=== PATIENT | female | born 1995 | race Caucasian/White ===

== ENCOUNTER → 2016-10-13 | Outpatient (CLI) | payer OTHER ==
[~2016-10-13] MED LIST: BCPILLS PO; LORA5TAB3 PO
== END | disposition home or self-care (01) ==
LOC: C.LABSPEC 17:33
PROVIDERS: ATTEND Pediatrics
DX: J02.9 Acute pharyngitis, unspecified (principal)

== ENCOUNTER → 2016-10-22 | Outpatient (CLI) | payer OTHER, BC ==
--- NOTE | 2016-10-22 16:32 | DIAGNOSTIC IMAGING REPORT ---
RENAL ULTRASOUND CLINICAL HISTORY: Hypertension. COMPARISON STUDY: CT of the abdomen and pelvis August 04, 2011. TECHNIQUE: Sonography of the kidneys and the urinary bladder was performed. FINDINGS: The right kidney measures 11.8 x 4.7 x 5.7 cm and the left measures 11.8 x 5.1 x 5.9 cm. There is no hydronephrosis. No calculi or masses are identified by sonography. Renal echogenicity, size and cortical thickness are normal. Both ureteral jets were identified. The bladder was unremarkable. IMPRESSION: Normal renal ultrasound. No hydronephrosis. Electronically signed by: Ken Burch M.D. 10/22/2016 4:31 PM Dictated Date/Time: 10/22/2016 4:30 PM
== END | disposition home or self-care (01) ==
LOC: C.ULTR 15:47
PROVIDERS: ATTEND Pediatrics
DX: I10 Essential (primary) hypertension (principal)

== ENCOUNTER → 2016-10-29 | Outpatient (CLI) | payer OTHER, BC ==
--- NOTE | 2016-10-29 16:15 | ECHOCARDIOGRAM REPORT ---
*NOTICE TO RECEIVING [employer] This information is strictly Confidential and protected under [place] law. [place] law prohibits you from making any further disclosure of this information unless further disclosure is expressly permitted by the written consent of the person to whom it pertains or is authorized by law. A general authorization for the release of medical or other information is not sufficient for this purpose. Hospital accepts no responsibility if the information is made available to any other person, INCLUDING THE PATIENT. Interpretation Summary * Name: CANDICE STOKES Study Date: 10/29/2016 01:40 PM BP: 136/77 mmHg * Patient Location: [facility] HR: 97 * : 1995 (M/d/yyyy) Gender: Female Height: 63 in * Age: 20 yrs Ethnicity: [place] Weight: 154 lb * Ordering Physician: Tiera Banuelos * Referring Physician: Tiera Banuelos * * BSA: 1.7 m2 * -- Conclusions -- * Left ventricular systolic function is normal. * There is normal left ventricular wall thickness. * No regional wall motion abnormalities noted. * Ejection Fraction = 65-70%. * No valvular pathology. Procedure Details * Left Ventricle The left ventricle is normal in size. There is normal left ventricular wall thickness. Ejection Fraction = 65-70%. Left ventricular systolic function is normal. No regional wall motion abnormalities noted. * Right Ventricle The right ventricle is normal in size and function. * Atria The left atrial size is normal. Right atrial size is normal. No ASD detected; PFO is not assessed. * Mitral Valve The mitral valve is normal in structure and function. There is no mitral valve stenosis. Significant mitral regurgitation is absent. * Tricuspid Valve The tricuspid valve is normal in structure and function. There is no tricuspid stenosis. There is trace tricuspid regurgitation. * Aortic Valve The aortic valve is normal in structure and function. No hemodynamically significant valvular aortic stenosis. No aortic regurgitation is present. * Pulmonic Valve The pulmonary valve is not well seen, but the Doppler examination is normal without significant regurgitation or stenosis. * Great Vessels The aortic root is normal size. The pulmonary artery is not well visualized, but is probably normal size. * Pericardium/Pleural There is no pericardial effusion. * Great Vessels Normal inferior vena cava size and collapsability with sniff indicates a normal right atrial pressure of 3 mmHg * * MMode 2D Measurements and Calculations * IVSd 0.84 cm * * LVIDd 4.6 cm * LVIDs 2.8 cm * LVPWd 0.74 cm * * IVS/LVPW 1.1 * FS 38.3 % * EDV(Teich) 97.4 ml * ESV(Teich) 30.5 ml * EF(Teich) 68.7 % * * EDV(cubed) 97.5 ml * ESV(cubed) 22.8 ml * EF(cubed) 76.6 % * * LV mass(C)d 115.7 grams * LV mass(C)dI 66.8 grams/m\S\2 * * SV(Teich) 66.9 ml * SI(Teich) 38.7 ml/m\S\2 * SV(cubed) 74.6 ml * SI(cubed) 43.1 ml/m\S\2 * * Ao root diam 2.7 cm * Ao root area 5.7 cm\S\2 * * LVOT diam 2.0 cm * LVOT area 3.1 cm\S\2 * * LVAd ap4 29.7 cm\S\2 * LVLd ap4 8.3 cm * EDV(MOD-sp4) 88.2 ml * EDV(sp4-el) 90.0 ml * LVAs ap4 15.0 cm\S\2 * LVLs ap4 6.1 cm * ESV(MOD-sp4) 30.7 ml * ESV(sp4-el) 31.2 ml * EF(MOD-sp4) 65.2 % * EF(sp4-el) 65.4 % * * LVAd ap2 29.4 cm\S\2 * LVLd ap2 8.6 cm * EDV(MOD-sp2) 86.8 ml * EDV(sp2-el) 85.7 ml * LVAs ap2 13.9 cm\S\2 * LVLs ap2 6.7 cm * ESV(MOD-sp2) 25.2 ml * ESV(sp2-el) 24.5 ml * EF(MOD-sp2) 71.0 % * EF(sp2-el) 71.4 % * * LVLd %diff 2.6 % * EDV(MOD-bp) 88.7 ml * LVLs %diff 7.7 % * ESV(MOD-bp) 28.9 ml * EF(MOD-bp) 67.4 % * * SV(MOD-sp4) 57.5 ml * SI(MOD-sp4) 33.2 ml/m\S\2 * * SV(MOD-sp2) 61.6 ml * SI(MOD-sp2) 35.6 ml/m\S\2 * * SV(MOD-bp) 59.8 ml * SI(MOD-bp) 34.5 ml/m\S\2 * * SV(sp4-el) 58.8 ml * SI(sp4-el) 34.0 ml/m\S\2 * * SV(sp2-el) 61.2 ml * SI(sp2-el) 35.4 ml/m\S\2 * * * Doppler Measurements and Calculations * MV E max marci 96.0 cm/sec * MV A max marci 39.8 cm/sec * * MV E/A 2.4 * * MV dec time 0.14 sec * * Ao V2 max 147.0 cm/sec * Ao max PG 8.6 mmHg * Ao max PG (full) 3.5 mmHg * MEHUL(V,A) 2.4 cm\S\2 * MEHUL(V,D) 2.4 cm\S\2 * * LV V1 max PG 5.2 mmHg * * LV V1 max 113.5 cm/sec * * * *
== END | disposition home or self-care (01) ==
LOC: C.CPL 13:31
PROVIDERS: ATTEND Pediatrics
DX: I10 Essential (primary) hypertension (principal)

== ENCOUNTER → 2016-10-31 | Outpatient (CLI) | payer OTHER, BC ==
--- NOTE | 2016-10-31 08:54 | DIAGNOSTIC IMAGING REPORT ---
DOPPLER ULTRASOUND OF THE RENAL ARTERIES CLINICAL HISTORY: 20-year-old female with hypertension. TECHNIQUE: Doppler sonography of the renal arteries was performed to assess renal artery stenosis. Images are reviewed in the transverse and longitudinal planes. COMPARISON: Ultrasound from 10/22/[address] from 08/04/2011. FINDINGS: Kidneys normal in echogenicity and size. Right kidney measures 11.9 cm, and left kidney measures 11.7 cm. No hydronephrosis. On the right, intrarenal arterial resistive indices range from 0.57 to 0.68. Intrarenal arterial waveforms are normal with brisk upstrokes. The right renal arterial waveform is normal, and velocities within the right renal artery measure up to 109 cm/sec. The right renal vein is patent. On the left, intrarenal arterial resistive indices range from 0.61 to 0.65. Intrarenal arterial waveforms are normal with brisk upstrokes. The left renal arterial waveform is normal, and velocities within the left renal artery measure up to 95 cm/sec. The left renal vein is patent. The abdominal aorta is patent. Velocities within the abdominal aorta measure up to 94 cm/s. Reference ranges: Main renal artery peak systolic velocity less than 180 cm/s equates to less than 60% diameter stenosis. Ratio renal artery peak systolic velocity to aortic peak systolic velocity less than 3.5 equates to less than 60% stenosis. IMPRESSION: No sonographic evidence of renal artery stenosis. Electronically signed by: Dave Watson M.D. 10/31/2016 8:53 AM Dictated Date/Time: 10/31/2016 8:47 AM
== END | disposition home or self-care (01) ==
LOC: C.ULTR 08:01
PROVIDERS: ATTEND Pediatrics
DX: I10 Essential (primary) hypertension (principal)

== ENCOUNTER → 2016-12-04 | Outpatient (CLI) | payer OTHER, BC ==
[2016-12-06 01:58] LABS: CHLAMYDIA TRACH RNA*** NOT DETECTED (NOT DETECTED); GC (NEIS GONORRHOEAE)RNA** NOT DETECTED (NOT DETECTED)
== END | disposition home or self-care (01) ==
LOC: C.LABSPEC 10:40
PROVIDERS: ATTEND Physician Assistant
DX: Z01.419 Encounter for gynecological examination (general) (routine) without abnormal findings (principal)